=== PATIENT | male | born 1965 | race Caucasian/White ===

== ENCOUNTER → 2019-05-21 | Day surgery (SDC) | payer OTHER ==
[~2019-05-21] MED LIST: ACETAMINOPHEN325 M1 PO; COLACE CLEAR50 MG PO; IBUPROFEN 600600 M1 PO; MIRALAX17 GM PO; OXYCODONE HCL 55 MG PO; PREVACID30 MG PO; PRINIVIL20 M1 PO; RANITIDINE HCL300 M1 PO
[2019-05-21 06:39] LABS: HEMATOCRIT 40.9 % (42.0-52.0); HEMOGLOBIN 13.4 gm/dL (14.0-18.0); MCH 25.4 pg (26.0-34.0); MCHC 32.8 g/dL (28.0-37.0); MCV 77.6 fL (80.0-100.0); MPV 8.3 fl. (7.2-11.1); RBC 5.27 mil/uL (4.50-6.00); RDW-CV 15.2 % (10.5-14.5); WBC 6.7 thou/uL (4.0-11.0)
[2019-05-21 06:42] LABS: CALCIUM 8.6 mg/dL (8.5-10.1); CREATININE 1.3 mg/dL (0.6-1.3); POTASSIUM 3.6 mmol/L (3.5-5.1)
--- NOTE | 2019-05-21 12:14 | EKG ---
[place] [address] ELECTROCARDIOGRAM REPORT Name: DONNA ANGEL Room: [facility].#: [id number] Admission: 05/21/19 Attend Phys: Baldev Franco MD Discharge: Date of : 63 Report #: [id number] THIS REPORT FOR: //name// [facility] Test Date: 2019-05-21 Test Time: 06:40:27 Pat Name: DONNA ANGEL Department: Room: Gender: M Levelman: JSTRATHMAN : 1965 Requested By: Baldev Franco Order Number: [id number] Reading MD: Axel Davis Measurements Intervals Beals Rate: 65 P: 42 MI: 147 QRS: 71 QRSD: 99 T: 28 QT: 416 QTc: 433 Interpretive Statements Sinus rhythm Abnormal inferior Q waves No previous ECG available for comparison Electronically Signed On 05-21-2019 12:14:50 FACILITY MANAGER HISTOLOGY by Axel Davis [email or web address] <ELECTRONICALLY SIGNED> By: Axel Davis MD, [facility] 05/21/19 1214 0640 0640 Axel Davis MD, FACC /EPI
== END | disposition home or self-care (01) ==
LOC: M.SUR 06:13
PROVIDERS: Surgery
DX: K42.9 Umbilical hernia without obstruction or gangrene (principal); Z98.890 Other specified postprocedural states; Z79.899 Other long term (current) drug therapy; Z79.891 Long term (current) use of opiate analgesic